=== PATIENT | female | born 1985 | race Hispanic/Latino ===

== ENCOUNTER 2018-01-12 06:35 | Emergency (ER) | payer MEDICAID, SELFPAY ==
[2018-01-12] MEDS ORDERED: Ondansetron ODT 4 MG TAB ONE (06:58)
[2018-01-12] MEDS ORDERED: Acetaminophen 500 MG TAB ONE (07:09)
[2018-01-12 07:21] LABS: #Eosinphils 0.1 thou/uL (0.0-0.7); #Lymphocytes 2.1 thou/uL (1.20-3.40); #Monocytes 0.3 thou/uL (0.11-0.59); #Neutrophils 5.5 thou/uL (1.40-6.50); %Basophils 0.6 % (0.0-1.0); %Eosinophils 1.1 % (0.0-10.0); %Lymphocytes 26.2 % (21.0-51.0); %Monocytes 4.2 % (0.0-10.0); %Neutrophils 67.9 % (42.0-75.0); Hemoglobin 12.5 g/dL (12.0-16.0); Mean Corpuscular HGB CONC 35.5 g/dL (32.0-36.0); Mean Corpuscular Hemoglobin 26.8 pg (27.0-31.0); Mean Corpuscular Volume 75.7 fL (78.0-98.0); Mean Platelet Volume 6.4 fL (7.4-10.4); Platelet Count 323 thou/uL (130-400); RBC Distribution Width 11.8 % (11.5-14.5); Red Blood Cell (RBC) Count 4.66 mill/uL (4.20-5.40); White Blood Cell (WBC) Count 8.1 thou/uL (4.8-10.8)
[2018-01-12 07:28] LABS: Clarity Slightly Cloudy (Clear); Pregnancy Test - Urine (BHCG) Negative (Negative); Pregu Control Background? CLEAR/WHITE (CLR/WHITE); Pregu Control Bar Appear? YES (CONTROL BAR)
[2018-01-12 07:29] LABS: Bilirubin Negative (Negative); Blood, Urine Moderate (Negative); Glucose, Urine (Dipstick) Negative (Negative); Leukocyte Negative (Negative); Nitrite Negative (Negative); Protein, Urine (Dipstick) Trace mg/dL (Neg-Trace); Urobilinogen 0.2 mg/dL (0.2-1.0)
[2018-01-12 07:36] LABS: Bacteria/HPF Rare-Few HPF (None Seen); Crystals/HPF RARE AMORPH PHOS HPF (Negative); RBC/HPF 0-3 HPF (0-3); Squamous Epithelial 0-3 HPF (0-3); WBC/HPF 0-3 HPF (0-3); Yeast-All Forms 1+ HPF (None Seen)
[2018-01-12 07:36] LABS: ALT (SGPT) 32 U/L (8-55); AST (SGOT) 25 U/L (5-34); Alkaline Phosphatase 63 U/L (40-150); Anion Gap 15 mmol/L (10-20); BUN (Urea Nitrogen) 10 mg/dL (7.0-18.7); Bilirubin, Total 0.4 mg/dL (0.2-1.2); Calc. Creatinine Clearance 0 mL/min (70-130); Calcium 9.4 mg/dL (7.8-10.44); Carbon Dioxide 23 mmol/L (22-29); Chloride 105 mmol/L (98-107); Estimated GFR-MDRD 86; Globulin 3.3 g/dL (2.4-3.5); Glucose 127 mg/dL (70-105); Potassium 3.9 mmol/L (3.5-5.1); Protein, Total 7.3 g/dL (6.0-8.3); Sodium 139 mmol/L (136-145)
== END 2018-01-12 07:55 | disposition home or self-care (01) ==
LOC: BURERS 06:35
DX: R42 Dizziness and giddiness (principal)
CPT/HCPCS: 36415; 80053; 81003; 81015; 81025; 85025; 87804; 99284; Q0162

== ENCOUNTER 2022-02-19 16:52 | Emergency (ER) | payer MEDICAID, SELFPAY | END 2022-02-19 17:23 | disposition home or self-care (01) | LOC: BURERS 16:52 | DX: J01.90 Acute sinusitis, unspecified (principal); B96.89 Other specified bacterial agents as the cause of diseases classified elsewhere | CPT/HCPCS: 99283 ==

== ENCOUNTER 2024-05-03 22:12 | Emergency (ER) | payer SELFPAY ==
[2024-05-03] MEDS ORDERED: Ipratropium/Albuterol 3 ML NEB ONE (22:42)
[2024-05-03] MEDS ORDERED: methylPREDNISolone Sod Succ/PF 125 MG/2 ML VIAL ONE (22:42)
== END 2024-05-03 23:30 | disposition home or self-care (01) ==
LOC: BURERS 22:12
DX: J98.01 Acute bronchospasm (principal)
CPT/HCPCS: 94640; 96372; J2919; J7620